=== PATIENT | female | born 1975 | race Caucasian/White ===

== ENCOUNTER → 2024-03-28 13:37 | Outpatient (REF) | payer BC, SELFPAY | LOC: HWRAD 13:37 | PROVIDERS: ATTENDING PHYSICIAN Family Medicine; REFERRING PHYSICIAN Obstetrics & Gynecology | DX: D25.9 Leiomyoma of uterus, unspecified (principal); J30.2 Other seasonal allergic rhinitis; F90.9 Attention-deficit hyperactivity disorder, unspecified type; F45.0 Somatization disorder; K21.00 Gastro-esophageal reflux disease with esophagitis, without bleeding; D89.40 Mast cell activation, unspecified; L50.9 Urticaria, unspecified; E78.5 Hyperlipidemia, unspecified; E66.9 Obesity, unspecified | CPT/HCPCS: 74176 ==